=== PATIENT | female | born 1990 | race Caucasian/White ===

== ENCOUNTER 2016-05-14 18:31 | Emergency (ER) | payer OTHER ==
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
[2016-05-14 19:24] VITALS: PULSE 74; RESP 18; O2SAT 95
[2016-05-14 19:33] VITALS: BP 108/75; TEMP 98.2
[2016-05-14] MEDS ORDERED: CEFTRIAXONE IM 350 MG/ML SYRINGE IM ONE (20:32)
[2016-05-14] MEDS ORDERED: AZITHROMYCIN 250 MG TAB PO ONE (20:32)
== END 2016-05-14 22:00 | disposition still patient (30) ==
LOC: CED 18:31
DX: S70.11XA Contusion of right thigh, initial encounter (principal); X58.XXXA Exposure to other specified factors, initial encounter
CPT/HCPCS: J0696